=== PATIENT | female | born 1945 | race Two or more races ===

== ENCOUNTER 2017-09-21 10:58 | Outpatient (CLI) | payer OTHER ==
[~2017-09-21 10:58] MED LIST: ACTOS45 MG; COUMADIN5 MG; CRESTOR10 MG; GLUCOVANCE 2.5/1 TAB; JANUVIA25 MG
== END 2017-09-21 11:12 | disposition home or self-care (01) ==
LOC: RAD 501 10:58
DX: M25.562 Pain in left knee (principal)

== ENCOUNTER 2017-09-23 09:25 | Outpatient (CLI) | payer OTHER | END 2017-09-23 17:05 | disposition home or self-care (01) | LOC: LAB 09:25 → RAD 09:25 | DX: D64.89 Other specified anemias (principal); E88.89 Other specified metabolic disorders; D68.8 Other specified coagulation defects; N39.0 Urinary tract infection, site not specified; A49.02 Methicillin resistant Staphylococcus aureus infection, unspecified site; E83.42 Hypomagnesemia; E03.8 Other specified hypothyroidism; E11.9 Type 2 diabetes mellitus without complications; E55.9 Vitamin D deficiency, unspecified; Z76.89 Persons encountering health services in other specified circumstances ==

== ENCOUNTER 2017-09-23 11:02 | Outpatient (CLI) | payer OTHER | END 2017-09-23 14:40 | disposition home or self-care (01) | LOC: TOM 11:02 | DX: M16.12 Unilateral primary osteoarthritis, left hip (principal); N83.209 Unspecified ovarian cyst, unspecified side ==

== ENCOUNTER 2017-09-28 13:39 | Outpatient (CLI) | payer OTHER | END 2017-09-28 13:44 | disposition home or self-care (01) | LOC: NUCLEAR 13:39 | DX: I87.2 Venous insufficiency (chronic) (peripheral) (principal) ==

== ENCOUNTER → 2017-10-06 | Outpatient (CLI) | payer OTHER | END | disposition home or self-care (01) | LOC: SONOGRAMA 09:17 | DX: E04.1 Nontoxic single thyroid nodule (principal) ==

== ENCOUNTER 2017-10-19 08:45 | Outpatient (CLI) | payer OTHER | END 2017-10-19 09:06 | disposition home or self-care (01) | LOC: RAD 501 08:45 | DX: M16.12 Unilateral primary osteoarthritis, left hip (principal) ==

== ENCOUNTER 2017-11-08 09:38 | Inpatient (IN) | payer OTHER ==
[~2017-11-08] VITALS: Ht 154.9 cm; Wt 68.9 kg
== END 2017-11-16 11:18 | disposition home or self-care (01) | DRG 470 ==
LOC: SURG 11-14 05:35 → O/R 11-14 05:35 → SURG 11-14 07:00
PROVIDERS: Orthopaedic Surgery
PROC: 0SRB0JZ Replacement of Left Hip Joint with Synthetic Substitute, Open Approach (ICD-10-PCS; principal; 2017-11-14 07:00)
PROC: 4A033R1 Measurement of Arterial Saturation, Peripheral, Percutaneous Approach (ICD-10-PCS; 2017-11-16)
DX: M16.12 Unilateral primary osteoarthritis, left hip (principal); I11.9 Hypertensive heart disease without heart failure; E11.9 Type 2 diabetes mellitus without complications; E03.8 Other specified hypothyroidism; E78.00 Pure hypercholesterolemia, unspecified; I25.10 Atherosclerotic heart disease of native coronary artery without angina pectoris; Z86.718 Personal history of other venous thrombosis and embolism

== ENCOUNTER 2019-02-14 09:15 | Outpatient (CLI) | payer OTHER | END 2019-02-14 09:18 | disposition home or self-care (01) | LOC: RAD 09:15 | DX: Z96.643 Presence of artificial hip joint, bilateral (principal) ==

== ENCOUNTER 2021-01-06 14:29 | Outpatient (CLI) | payer OTHER | END 2021-01-06 14:37 | disposition home or self-care (01) | LOC: RAD 14:29 | PROVIDERS: ATTEND Orthopaedic Surgery | DX: M25.562 Pain in left knee (principal); Z96.643 Presence of artificial hip joint, bilateral ==